=== PATIENT | female | born 1995 | race Caucasian/White ===

== ENCOUNTER → 2019-12-18 | Outpatient (CLI) | payer OTHER ==
[2019-12-18 12:18] LABS: MICROSCOPIC INDICATED
== END | disposition home or self-care (01) ==
LOC: STAR 10:42
PROVIDERS: ATTEND Urology
DX: Z01.818 Encounter for other preprocedural examination (principal); N20.2 Calculus of kidney with calculus of ureter
CPT/HCPCS: 81001; 87086

== ENCOUNTER 2019-12-23 09:05 | Day surgery (SDC) | payer OTHER ==
[~2019-12-23] VITALS: Ht 154.9 cm; Wt 72.3 kg
[2019-12-23] MEDS ORDERED: FENTANYL PF 250 MCG/5ML ONE (09:22)
[2019-12-23] MEDS ORDERED: MIDAZOLAM 1 MG/ML, 2ML ONE (09:22)
[2019-12-23] MEDS ORDERED: LACTATED RINGERS 1,000 ML IV SCH (09:53)
[2019-12-23 09:58] VITALS: BP 96/68
[2019-12-23] MEDS ORDERED: CHLORHEXIDINE 15 ML UDC MM ONE (10:00)
[2019-12-23] MEDS ORDERED: CHLORHEXIDINE 15 ML UDC ONE (10:01)
[2019-12-23] MEDS ORDERED: CEFAZOLIN 1,000 MG ONE (10:14)
[2019-12-23] MEDS ORDERED: DEXAMETHASONE 4 MG/ML, 1ML ONE ×3 (10:19→11:14)
[2019-12-23] MEDS ORDERED: hydrALAzine 20 MG/ML, 1ML IV PRN (10:30)
[2019-12-23] MEDS ORDERED: PROMETHAZINE 25 MG/ML, 1ML IVPush PRN (10:30)
[2019-12-23] MEDS ORDERED: ACETAMINOPHEN 325 MG TABLET PO PRN (10:30)
[2019-12-23] MEDS ORDERED: LABETALOL 5MG/ML, 20ML IV PRN (10:30)
[2019-12-23] MEDS ORDERED: HYDROmorphone 1 MG/ML, 1ML INJ IVPush PRN (10:30)
[2019-12-23] MEDS ORDERED: FENTANYL PF 100 MCG/2ML IV PRN (10:30)
[2019-12-23] MEDS ORDERED: MEPERIDINE/PF 25MG/0.5ML IVPush PRN (10:30)
[2019-12-23] MEDS ORDERED: ONDANSETRON 2MG/ML, 2ML IVPush PRN (10:30)
[2019-12-23] MEDS ORDERED: PROPOFOL 10 MG/ML, 20ML ONE (11:13)
[2019-12-23] MEDS ORDERED: ONDANSETRON 2MG/ML, 2ML ONE (11:13)
[2019-12-23] MEDS ORDERED: KETOROLAC 30 MG/1 ML ONE (11:14)
[2019-12-23] MEDS ORDERED: OMNIPAQUE 350 MG/ML, 50 ML BOTTLE ONE (11:15)
[2019-12-23] MEDS ORDERED: MEPERIDINE/PF 25MG/ML,1ML ONE (11:29)
[2019-12-23] MEDS ORDERED: ACETAMINOPHEN 650 MG/20.3 ML UDC ONE (11:41)
[2019-12-23] MEDS ORDERED: ACETAMINOPHEN 325 MG TABLET ONE (11:41)
[2019-12-23] MEDS ORDERED: OXYcodone 5 MG/5 ML ORAL.SOL UDC ONE (11:41)
[2019-12-23] MEDS: OXYcodone 5 MG/5 ML ORAL.SOL UDC PO PRN ×2 (11:45→12:51)
[2019-12-23] MEDS ORDERED: FENTANYL PF 100 MCG/2ML ONE (11:47)
[2019-12-23] MEDS ORDERED: PHENAZOPYRIDINE 200 MG TABLET PO ONE (13:00)
== END 2019-12-23 14:30 | disposition home or self-care (01) ==
LOC: OUT 09:05
PROVIDERS: ATTEND Urology
DX: N20.2 Calculus of kidney with calculus of ureter (principal); Z11.59 Encounter for screening for other viral diseases; N28.0 Ischemia and infarction of kidney; F41.9 Anxiety disorder, unspecified; Z88.8 Allergy status to other drugs, medicaments and biological substances; Z87.442 Personal history of urinary calculi
CPT/HCPCS: 36415; 52356; 74420; 81025; 82360; 87635; 88300; C1769; C2617; J0690; J1100; J1885; J2175; J2250; J2405; J2704; J3010; J7120; Q9967

== ENCOUNTER 2020-06-28 13:43 | Day surgery (SDC) | payer OTHER ==
[~2020-06-28] VITALS: Ht 154.9 cm; Wt 72.7 kg
[2020-06-28] MEDS ORDERED: CHLORHEXIDINE 15 ML UDC MM ONE (14:27)
[2020-06-28 14:30] VITALS: BP 111/77
[2020-06-28] MEDS: LACTATED RINGERS 1,000 ML IV SCH ×2 (14:58→20:05)
[2020-06-28 15:42] LABS: MICROSCOPIC INDICATED
[2020-06-28] MEDS ORDERED: GLYCOPYRROLATE 0.2MG/1ML, 5ML ONE (15:44)
[2020-06-28] MEDS ORDERED: CEFAZOLIN 1,000 MG ONE (15:44)
[2020-06-28] MEDS ORDERED: DEXAMETHASONE 4 MG/ML, 1ML ONE (15:44)
[2020-06-28] MEDS ORDERED: MIDAZOLAM 1 MG/ML, 2ML ONE (15:44)
[2020-06-28] MEDS ORDERED: NEOSTIGMINE 1 MG/ML, 10ML ONE (15:44)
[2020-06-28] MEDS ORDERED: PROPOFOL 10 MG/ML, 20ML ONE (15:44)
[2020-06-28] MEDS ORDERED: FENTANYL PF 250 MCG/5ML ONE (15:44)
[2020-06-28] MEDS ORDERED: ROCURONIUM 10MG/ML,5ML ONE (15:44)
[2020-06-28] MEDS ORDERED: ONDANSETRON 2MG/ML, 2ML ONE (15:44)
[2020-06-28 16:01] LABS: HCG UR SG 1.026 (1.003-1.030)
[2020-06-28] MEDS ORDERED: FENTANYL PF 100 MCG/2ML IV PRN (18:00)
[2020-06-28] MEDS ORDERED: HYDROmorphone 1 MG/ML, 1ML INJ IVPush PRN (18:00)
[2020-06-28] MEDS ORDERED: MEPERIDINE/PF 25MG/0.5ML IVPush PRN (18:00)
[2020-06-28] MEDS ORDERED: ACETAMINOPHEN 325 MG TABLET PO PRN (18:00)
[2020-06-28] MEDS ORDERED: morphine SULFATE 10 MG/ML, 1ML IVPush PRN (18:00)
[2020-06-28] MEDS ORDERED: HALOPERIDOL 5 MG/ML IV PRN (18:00)
[2020-06-28] MEDS ORDERED: PROMETHAZINE 25 MG/ML, 1ML IVPush PRN (18:00)
[2020-06-28] MEDS ORDERED: OXYcodone 5 MG/5 ML ORAL.SOL UDC PO PRN (18:00)
[2020-06-28] MEDS ORDERED: KETOROLAC 30 MG/1 ML ONE (18:13)
== END 2020-06-28 21:00 | disposition home or self-care (01) ==
LOC: OR 13:43
PROVIDERS: ATTEND Urology
DX: Z46.6 Encounter for fitting and adjustment of urinary device (principal); N20.0 Calculus of kidney; Z20.822 Contact with and (suspected) exposure to COVID-19; Z79.899 Other long term (current) drug therapy; Z87.440 Personal history of urinary (tract) infections; Z88.8 Allergy status to other drugs, medicaments and biological substances
CPT/HCPCS: 52353; 74018; 81001; 81025; 82360; 87086; 87635; 88300; C1769; J0690; J1100; J1885; J2250; J2405; J2704; J2710; J3010; J7120; 76000